=== PATIENT | female | born 2000 | race Caucasian/White ===

== ENCOUNTER 2024-06-21 07:20 | Emergency (ER) | payer BC, OTHER ==
[2024-06-21] MEDS ORDERED: ZOFRAN ODT 4 MG ONE (07:31)
--- NOTE | 2024-06-21 07:31 | ERPHSYRPT ---
- History of Present Illness Time Seen by Provider: 06/21/24 07:31 Historian: patient Exam Limitations: no limitations Physician History: Olesya is a 24 year old who presents with constipation and abdominal pain following recent laparoscopic abdominal surgery. She has not had a bowel movement since Saturday, experiencing significant discomfort and abdominal pain primarily in the lower region. The symptoms have disrupted her sleep. She has attempted various treatments to alleviate the constipation, including prune wax with a full glass of water, a glycerin suppository, and milk of magnesia, but these have not been effective. She mentions having very small bowel movements twice, which have not provided relief. Multiple episodes of vomiting have occurred, and she feels 'super hot and cold,' suggesting possible fever-like symptoms, although she does not believe she has had a fever. Profuse sweating is noted, particularly in the morning. Last pain meds 2 days ago. No burning sensation during urination and no significant swelling. Timing/Duration: week(s) (1), worse Activities at Onset: rest Quality: sharpness Abdominal Pain Onset Location: generalized abdomen Pain Radiation: no radiation Severity of Pain-Max: severe Severity of Pain-Current: severe Modifying Factors: Improves With: nothing. Worsens With: palpation Associated Symptoms: loss of appetite, nausea, vomiting, No back, No diarrhea, No fever/chills Previous symptoms: no prior history Allergies/Adverse Reactions: No Known Drug Allergies Allergy (Verified 06/21/24 07:29) Hx Tetanus, Diphtheria Vaccination/Date Given: Yes Hx Influenza Vaccination/Date Given: No Hx Pneumococcal Vaccination/Date Given: No - Review of Systems All Other Systems: Reviewed and Negative - Past Medical History Pertinent Past Medical History: No - Past Surgical History Past Surgical History: No - Social History Smoking Status: Never smoker Exposure to second hand smoke: No Drug Use: none Patient Lives Alone: No - Nursing Vital Signs Nursing Vital Signs: Initial Vital Signs Blood Pressure 118/78 06/21/24 07:30 O2 Sat by Pulse Oximetry 100 06/21/24 07:30 Pain Scale Pain Intensity 8 - Physical Exam General Appearance: no apparent distress, thin Eye Exam: eyes nml inspection Respiratory Exam: normal breath sounds, lungs clear, airway intact, No respiratory distress Cardiovascular Exam: regular rate/rhythm, normal heart sounds, capillary refill <2 sec, No edema Gastrointestinal/Abdomen Exam: soft, normal bowel sounds, tenderness (surrounding RLQ, umbilical, LLQ healing incisions), guarding, ecchymosis (surrounding incisions), No distention, No mass Back Exam: CVA tenderness (left) Extremity Exam: normal inspection, normal range of motion, No swelling Neurologic Exam: alert, oriented x 3, cooperative Skin Exam: normal color, warm, dry, No rash SpO2 Interpretation: normal O2 Delivery: Room Air - Course Nursing assessment & vital signs reviewed: Yes - CT Exams Abdomen/Pelvis CT Interpretation: Tele-radiologist Report, Other (boggy uterus with difficulty assessing pelvic organs likely due to post op changes from recent surgery) Ordered Tests: Active Orders 24 hr Category Date Time Status ABDOMEN AND PELVIS W/0 CONTRAS [CT] Stat Exams 06/21/24 08:05 Completed CBC W DIFF Stat Lab 06/21/24 07:42 Completed CMP Stat Lab 06/21/24 07:42 Completed LIPASE Stat Lab 06/21/24 07:42 Completed UA W/RFX UR CULTURE Stat Lab 06/21/24 08:59 Received Medication Summary Discontinued Medications Generic Name Dose Route Start Last Admin Trade Name Masterq PRN Reason Stop Dose Admin Docusate Sodium 100 mg 06/21/24 08:51 Docusate Sodium 50 Mg/5 Ml Liquid PO 06/21/24 08:52 ONCE ONE Magnesium Citrate 296 ml 06/21/24 08:50 Magnesium Citrate 296 Ml Solution PO 06/21/24 08:51 STAT ONE Ondansetron HCl 4 mg 06/21/24 07:30 06/21/24 07:32 Zofran 4 Mg/Udtablet Orally Disintegrating PO 06/21/24 07:31 4 mg STAT ONE Administration Ondansetron HCl Confirm 06/21/24 07:31 Zofran 4 Mg/Udtablet Orally Disintegrating Administered 06/21/24 07:32 Dose 4 mg .ROUTE .STK-MED ONE Polyethylene Glycol 34 gm 06/21/24 08:50 Polyethylene Glycol 3350 17 Gm Packet PO 06/21/24 08:51 ONCE ONE Senna 8.6 mg 06/21/24 08:51 Senna 8.6 Mg Tablet PO 06/21/24 08:52 ONCE ONE Lab/Rad Data: Laboratory Result Diagrams 06/21/24 07:42 06/21/24 07:42 Laboratory Results 06/21/24 06/21/24 Range/Units 07:42 07:42 WBC 6.3 (3.98-10.04) x10^3/uL RBC 4.72 (3.93-5.22) x10^6/uL Hgb 14.1 (11.2-15.7) g/dL Hct 41.7 (34.1-44.9) % MCV 88.3 (79.4-94.8) fL MCH 29.9 (25.6-32.2) pg MCHC 33.8 (32.2-35.5) g/dL RDW 12.1 (11.7-14.4) % Plt Count 227 (182-369) x10^3/uL MPV 9.0 L (9.4-12.3) fL Gran % 70.1 (34.0-71.1) % Immature Gran % (Auto) 0.5 H (0.001-0.429) % Nucleat RBC Rel Count 0.0 (0.00-0.2) % Eos # (Auto) 0.08 (0.04-0.36) x10^3/uL Immature Gran # (Auto) 0.03 (0.001-0.031) x10^3u/L Absolute Lymphs (auto) 1.39 (1.18-3.74) x10^3/uL Absolute Monos (auto) 0.35 (0.24-0.86) x10^3/uL Absolute Nucleated RBC 0.00 (0.00-0.012) x10^3u/L Lymphocytes % 22.2 (19.3-51.7) % Monocytes % 5.6 (4.7-12.5) % Eosinophils % 1.3 (0.7-5.8) % Basophils % 0.3 (0.1-1.2) % Absolute Granulocytes 4.40 (1.56-6.13) x10^3/uL Basophils # 0.02 (0.01-0.08) x10^3/uL Sodium 137 (135-145) mmol/L Potassium 3.8 (3.5-5.1) mmol/L Chloride 102 (98-107) mmol/L Carbon Dioxide 23 (22-30) mmol/L Anion Gap 16.0 H (5-15) MEQ/L BUN 15 (7-17) mg/dL Creatinine 0.59 (0.52-1.04) mg/dL Estimated GFR 129.8 ML/MIN Glucose 112 H (74-106) mg/dL Calcium 9.4 (8.4-10.2) mg/dL Total Bilirubin 0.70 (0.2-1.3) mg/dL AST 25 (14-36) U/L ALT 20 (0-35) U/L Alkaline Phosphatase 38 (38-126) U/L Serum Total Protein 7.7 (6.3-8.2) g/dL Albumin 4.8 (3.5-5.0) g/dL Lipase 45 (23-300) U/L - Progress Progress Note: This is a 24yo presenting with symptoms consistent with constipation. Differential diagnosis includes constipation, post op ileus, SBO, infection, UTI, nephrolithiasis. Presentation not consistent with acute bowel obstruction caused by tumor, stricture, hernia, adhesion, volvulus or fecal impaction. Presentation not consistent with acute anorectal disorders. Low suspicion for chronic causes of constipation including hypothyroidism or electrolyte disorders. Presentation not consistent with other acute, emergent causes of constipation at this time. Postoperative Constipation No bowel movement since Saturday with associated abdominal pain, nausea, and vomiting. Failed conservative management with prune wax, glycerin suppository, and milk of magnesia. Minimal bright red blood per rectum with hard stool passage. Recent surgery with abdominal incisions that are healing well. -Order abdominal CT scan and basic lab work to rule out obstruction or other complications. -If imaging and labs are normal, initiate a more aggressive bowel regimen. Nausea/Vomiting Likely secondary to constipation. Given Zofran 4mg orally with the option to repeat dose if needed. -Monitor response to Zofran and adjust as needed. 06/21/24 09:09 CT shows no acute abd pathology, will give constipation regimen and DC. If no BM by evening patient should return. Counseled pt/family regarding: lab results, diagnosis, need for follow-up, rad results Medical Desision Making - Diagnostic Testing Diagnostic test were ordered, analyzed, and reviewed by me: Yes Radiological Interpretation: Interpreted by me, Reviewed by me, Teleradiologist Report - Risk of complications The pt has a mod risk of morbidity or mortality based on: Need for prescription drug management - Departure Departure Disposition: Home Clinical Impression: Abdominal pain, Constipation due to pain medication Condition: Good Critical Care Time: No Referrals: [facility] [NON-STAFF Y W/O PRIVILEGES] - Follow up/PCP as directed Instructions: Constipation in adults Prescriptions: Polyethylene Glycol 3350 17 gm [Miralax Powder 17GM PACKET] 17 gm PO DAILY 14 Days #14 packet Senna/Docusate Sodium Tab [Senokot-S Tablet] 1 each PO DAILY PRN PRN 14 Days #14 tablet PRN Reason: Constipation
[2024-06-21] MEDS: ZOFRAN ODT 4 MG PO ONE (07:32)
[2024-06-21 07:45] VITALS: TEMP 97.7
[2024-06-21 07:47] LABS: BASOPHIL % 0.3 % (0.1-1.2); Basophil (Absolute #) 0.02 x10^3/uL (0.01-0.08); Eosinophil % 1.3 % (0.7-5.8); Eosinophil (Absolute #) 0.08 x10^3/uL (0.04-0.36); Hematocrit 41.7 % (34.1-44.9); Hemoglobin 14.1 g/dL (11.2-15.7); IMMATURE GRAN # 0.03 x10^3u/L (0.001-0.031); IMMATURE GRAN % 0.5 % (0.001-0.429); Lymphocyte (Absolute #) 1.39 x10^3/uL (1.18-3.74); Lymphocytes % 22.2 % (19.3-51.7); Mean Cell Volume 88.3 fL (79.4-94.8); Mean Corpuscular Hemoglobin 29.9 pg (25.6-32.2); Mean Corpuscular Hgb Concent. 33.8 g/dL (32.2-35.5); Monocyte (Absolute #) 0.35 x10^3/uL (0.24-0.86); Monocytes % 5.6 % (4.7-12.5); Neutrophil % 70.1 % (34.0-71.1); Platelet Count 227 x10^3/uL (182-369); Red Blood Count 4.72 x10^6/uL (3.93-5.22); Red Cell Distribution Width 12.1 % (11.7-14.4); White Blood Count 6.3 x10^3/uL (3.98-10.04)
[2024-06-21 07:59] LABS: ALBUMIN 4.8 g/dL (3.5-5.0); BILIRUBIN,TOTAL 0.7 mg/dL (0.2-1.3); Calcium 9.4 mg/dL (8.4-10.2); Creatinine 1 0.59 mg/dL (0.52-1.04); EST GLOMERULAR FILTRATION RATE 129.8 ML/MIN; Potassium 3.8 mmol/L (3.5-5.1); Total Protein 7.7 g/dL (6.3-8.2)
[2024-06-21 08:36] VITALS: RESP 18
--- NOTE | 2024-06-21 08:40 | XRAY ---
CLINICAL HISTORY: abd pain COMPARISON: No prior studies are available for comparison. TECHNIQUE: Non-contrast CT of the abdomen and pelvis was performed, with the following protocol: axial images, and reconstructed coronal and sagittal images. One of the following dose reduction techniques was utilized for this exam: Automated exposure control, adjustment of the mA and/or kV according to patient size, and use of iterative reconstruction. CTDI 2.71, total DLP 127.74mGy.cm. FINDINGS: Abdomen: Liver: Mildly enlarged in size, normal shape, and slightly increased density. No focal lesions, cysts, or masses were identified. Gallbladder and Biliary System: The gallbladder is normal in size and shape. No wall thickening, pericholecystic fluid, or gallstones were identified. Pancreas: Pancreatic head, body, and tail are visualized and appear normal in size and density. No pancreatic masses or calcifications were noted. Spleen: Normal in size, shape, and density. No splenic lesions or masses were identified. Kidneys and Adrenal Glands: Both kidneys are normal in size, shape, and position. Cortical thickness is within normal limits. No renal calculi or hydronephrosis. Adrenal glands are unremarkable. Appendix: The appendix is unclearly identified however no roberth appendiceal fat stranding, or appendicolith. No evidence of appendiceal abscess or perforation. Pelvis: Urinary Bladder: Normal in contour and wall thickness. No intraluminal lesions. Uterus: bulky in size. No masses. Ovaries: Not well visualized but no gross masses noted. Vagina: Normal in contour and wall thickness. Cervix: No evidence of mass or abnormal thickening. Peritoneal and Retroperitoneal Structures: No free fluid or abnormal fluid collections were identified within the abdomen or pelvis. No lymphadenopathy was noted. Bowel: The visualized bowel loops are normal in caliber and appearance. No evidence of bowel obstruction or wall thickening. Bones and Soft Tissues: Pelvic bones and soft tissues are unremarkable. No fractures or abnormal masses were identified. IMPRESSION: 1. Hepatomegaly with a slight increase in density, clinical and laboratory correlation recommended. 2. Bulky uterus with improperly visualized pelvic organs, further TVUS recommended if clinically warranted. Electronically Signed by: Sravanthi Jacques MD. (06/21/2024 08:36:39 EST)
[2024-06-21 09:02] VITALS: BP 109/70; PULSE 74; O2SAT 100
[2024-06-21] MEDS ORDERED: CITROMA 296 ML ONE (09:04)
[2024-06-21 09:18] LABS: Appearance Clear (Clear); Bacteria None Seen /HPF (None Seen); Bilirubin Negative (Negative); Blood Negative (Negative); Epithelial Cells Rare /HPF (None Seen); Glucose, Urine Negative (Negative); Hyaline Casts NONE SEEN /LPF (0-2); Ketones Negative (Negative); Leukocyte Esterase Small (Negative); Nitrite Negative (Negative); Ph 7.5 (4.6-8.0); Protein,Urine Dip Negative (Negative); RBC 0-2 /HPF (0-5); WBC 0-2 /HPF (0-5)
[2024-06-21] MEDS: SENOKOT 8.6 MG PO ONE (09:36)
[2024-06-21] MEDS: CITROMA 296 ML PO ONE (09:36)
[2024-06-21] MEDS: DOCUSATE SODIUM PO ONE (09:37)
[2024-06-21] MEDS: Miralax Powder 17GM PACKET PO ONE (09:37)
== END 2024-06-21 09:53 | disposition home or self-care (01) ==
LOC: ED 07:20
DX: K59.03 Drug induced constipation (principal); T50.905A Adverse effect of unspecified drugs, medicaments and biological substances, initial encounter; R10.9 Unspecified abdominal pain; R11.2 Nausea with vomiting, unspecified; Z79.899 Other long term (current) drug therapy
CPT/HCPCS: 36415; 74176; 80053; 81001; 83690; 85025; 99283; 99284; Q0162; A9270-GY